=== PATIENT | male | born 1985 | race Caucasian/White ===

== ENCOUNTER 2019-04-07 13:53 | Emergency (ER) | payer OTHER, SELFPAY ==
[2019-04-07] MEDS ORDERED: Adacel (T-DAP) 0.5 ML SYRINGE ONE (14:02)
[2019-04-07] MEDS ORDERED: Lidocaine 1% (PF) 30 ML VIAL ONE (14:14)
--- NOTE | 2019-04-07 15:58 | RAD ---
Left index finger: 3 views INDICATIONS: Trauma FINDINGS: No evidence of fracture, dislocation, or other acute abnormality. IMPRESSION: No acute finding
[2019-04-07] MEDS ORDERED: HYDROcodone/Acetaminophen 5/325 mg Tablet ONE (16:27)
== END 2019-04-07 16:30 | disposition home or self-care (01) ==
LOC: NAV ERS 13:53
DX: S67.190A Crushing injury of right index finger, initial encounter (principal); W22.8XXA Striking against or struck by other objects, initial encounter
CPT/HCPCS: 12002; 90471; 90715; J2001